=== PATIENT | female | born 1985 | race American Indian/Alaskan Native ===

== ENCOUNTER → 2018-08-26 | Outpatient (CLI) | payer MEDICAID | END | disposition home or self-care (01) | LOC: SLR 11:00 | PROVIDERS: ATTEND Otolaryngology | DX: G47.33 Obstructive sleep apnea (adult) (pediatric) (principal); R06.83 Snoring; E66.01 Morbid (severe) obesity due to excess calories | CPT/HCPCS: 95811 ==

== ENCOUNTER 2018-10-09 20:28 | Emergency (ER) | payer MEDICAID, OTHER ==
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
[2018-10-10] MEDS ORDERED: NORCO 5/325 PO STA (00:17)
[2018-10-10 00:23] VITALS: BP 139/76
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
== END 2018-10-10 00:52 | disposition home or self-care (01) ==
LOC: ED 20:28
DX: M79.18 Myalgia, other site (principal); R07.9 Chest pain, unspecified; V49.49XA Driver injured in collision with other motor vehicles in traffic accident, initial encounter; Y93.89 Activity, other specified; Y92.89 Other specified places as the place of occurrence of the external cause; Y99.8 Other external cause status
CPT/HCPCS: 71046; 72100